=== PATIENT | female | born 1990 | race Caucasian/White ===

== ENCOUNTER 2017-05-09 19:56 | Emergency (ER) | payer BC ==
[~2017-05-09] VITALS: Ht 160 cm; Wt 61.4 kg
[2017-05-09 19:56] VITALS: TEMP 97.1
[2017-05-09 20:25] LABS: BASO # 0.1 (0.0-0.2); BASO % 0.4 % (0.0-2.0); EOS # 0.2 (0.0-0.7); EOS % 1.2 % (0-4.0); GRAN # 8.6 (1.4-6.5); GRAN % 63.3 % (42.2-75.2); HEMATOCRIT 35.7 % (37.0-47.0); HEMOGLOBIN 12.1 g/dl (12.5-16.0); LYMPH # 3.9 (1.2-3.4); LYMPH % 28.6 % (20.0-51.0); MEAN CELL VOLUME 83 fl (80.0-100.0); MEAN CORPUSCULAR HEMOGLOBIN 28 pg (27.0-31.0); MEAN CORPUSCULAR HGB CONC 34 g/dl (33.0-37.0); MONO # 0.9 (0.1-0.6); MONO % 6.2 % (1.7-9.3); PLATELET COUNT 261 K/mm3 (130-400); RED BLOOD COUNT 4.28 M/mm3 (4.10-5.30); WHITE BLOOD COUNT 13.6 K/mm3 (4.8-10.8)
[2017-05-09 20:34] LABS: CALCIUM 8.8 mg/dL (8.4-10.2); CREATININE, serum 0.64 mg/dL (0.52-1.25)
[2017-05-09 20:36] LABS: POTASSIUM 2.9 mmol/L (3.4-5.0)
[2017-05-09] MEDS ORDERED: K-DUR 10 MEQ T10 MEQ PO (22:48)
[2017-05-09 22:51] VITALS: BP 117/66; PULSE 82
== END 2017-05-09 23:06 | disposition home or self-care (01) ==
LOC: COL.ER 19:56
PROVIDERS: Emergency Medicine
DX: O03.4 Incomplete spontaneous abortion without complication (principal); E87.6 Hypokalemia
CPT/HCPCS: J1885; J2405; J3010; J7030

== ENCOUNTER 2020-12-16 01:47 | Emergency (ER) | payer BC ==
[~2020-12-16] VITALS: Ht 160 cm; Wt 71.8 kg
[~2020-12-16 01:47] MED LIST: K-DUR 10 MEQ T10 MEQ PO
[2020-12-16 02:39] LABS: BASO % 0.5 % (0.0-2.0); EOS # 0.1 (0.0-0.7); EOS % 1.2 % (0-4.0); GRAN # 5.4 (1.4-6.5); GRAN % 71.5 % (42.2-75.2); HEMATOCRIT 38.4 % (37.0-47.0); HEMOGLOBIN 12.8 g/dl (12.5-16.0); LYMPH # 1.6 (1.2-3.4); LYMPH % 20.6 % (20.0-51.0); MEAN CELL VOLUME 85 fl (80.0-100.0); MEAN CORPUSCULAR HEMOGLOBIN 28 pg (27.0-31.0); MEAN CORPUSCULAR HGB CONC 33 g/dl (33.0-37.0); MEAN PLATELET VOLUME 10.1 fl (7.4-10.4); MONO # 0.5 (0.1-0.6); MONO % 5.9 % (1.7-9.3); PLATELET COUNT 246 K/mm3 (130-400); REDCELL DISTRIBUTION WIDTH-CV 11.9 % (11.5-14.5)
[2020-12-16 02:50] LABS: ALANINE AMINOTRANSFERASE 20 U/L (4-34); ALBUMIN 3.9 gm/dL (3.5-5.0); ALKALINE PHOSPHATASE 40 U/L (50-136); ANION GAP 7 mmol/L (7-16); AST,SGOT 25 U/L (15-37); BILIRUBIN,TOTAL 0.4 mg/dL (0.0-1.0); BLOOD UREA NITROGEN 10 mg/dL (7-17); CARBON DIOXIDE 23 mmol/L (22-30); CHLORIDE 106 mmol/L (98-107); CREATININE, serum 0.68 (0.52-1.25); GLUCOSE 113 mg/dL (74-106); POTASSIUM 3.6 mmol/L (3.4-5.0); SODIUM 135 mmol/L (137-145); TOTAL PROTEIN 7.1 gm/dL (6.4-8.2)
[2020-12-16 03:00] LABS: TROPONIN-I < 0.012 ng/mL (0.000-0.035)
[2020-12-16 03:30] VITALS: BP 127/76; PULSE 81; TEMP 98
== END 2020-12-16 03:30 | disposition home or self-care (01) ==
LOC: COL.ER 01:47
PROVIDERS: Personal Emergency Response Attendant
DX: R07.89 Other chest pain (principal); R10.13 Epigastric pain; R42 Dizziness and giddiness